=== PATIENT | male | born 1975 | race Caucasian/White ===

== ENCOUNTER 2017-06-03 08:21 | Emergency (ER) | END 2017-06-03 12:12 | disposition home or self-care (01) ==

== ENCOUNTER 2018-11-02 20:41 | Inpatient (IN) | payer MEDICAID ==
[~2018-11-02] VITALS: Ht 355.6 cm; Wt 93.0 kg
[~2018-11-02 20:41] MED LIST: CIPR500T4 PO; HYDR-3980 PO
[2018-11-02] MEDS ORDERED: ACETAMINOPHEN 325 MG TAB PO STA (21:05)
[2018-11-02] MEDS ORDERED: CEFEPIME 2GM/50 ML (PMX) 50 ML IVPB STA (21:05)
[2018-11-02] MEDS ORDERED: SODIUM CHLORIDE 0.9% 1L BAG IV* STA (21:05)
[2018-11-02] MEDS ORDERED: VANCOMYCIN 1 GM (PMX) 250 ML IVPB ONE (21:30)
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
[2018-11-02] MEDS ORDERED: LORAZEPAM 2 MG INJ IV ONE (23:00)
[2018-11-02] MEDS ORDERED: LIDOCAINE 2% JEL.PF.APP 5 ML UROJET SYRINGE MM ONE (23:00)
[2018-11-02] MEDS ORDERED: SOD CHLORIDE 0.9% 1,000 ML IV SCH (23:58)
[2018-11-03] VITALS (70 sets, daily range): BP systolic 79–114; BP diastolic 41–83; PULSE 88–110; RESP 16–39; Ht 355.6 cm; Wt 93.0 kg
[2018-11-03] MEDS ORDERED: DOCUSATE SODIUM 100 MG CAP PO PRN (01:00)
[2018-11-03] MEDS ORDERED: ONDANSETRON 4 MG INJ IV PRN ×2 (01:00)
[2018-11-03] MEDS ORDERED: MAGNESIUM HYDROXIDE 30ML CUP PO PRN (01:00)
[2018-11-03] MEDS ORDERED: LORAZEPAM 2 MG INJ IV PRN (01:00)
[2018-11-03] MEDS ORDERED: ALBUTEROL/IPRATROPIUM (NEB) 3 ML AMP HHN PRN (01:00)
[2018-11-03] MEDS ORDERED: NITROGLYCERIN (SL) 0.4 MG TAB SL PRN (01:00)
[2018-11-03] MEDS ORDERED: hydrALAzine 20 MG INJ IV PRN (01:00)
[2018-11-03] MEDS ORDERED: morphine 2 MG INJ IV PRN (01:00)
[2018-11-03] MEDS ORDERED: ACETAMINOPHEN 325 MG TAB PO PRN ×2 (01:00)
[2018-11-03] MEDS ORDERED: NACL 0.9% 3 ML SYG IV SCH (01:00)
[2018-11-03] MEDS ORDERED: NORepinephrine 8MG/250 ML (PMX 250 ML ONE (03:59)
[2018-11-03] MEDS ORDERED: NORepinephrine 8MG/250 ML (PMX 250 ML IV SCH (04:30)
--- NOTE | 2018-11-03 04:37 | EN ---
Date/Time of Note Date/Time of Note DATE: 11/03/18 TIME: 04:36 ER Progress Note Central Line Placement by me: Patient consented, sterilely draped, full prep, gown, glove, mask, time out performed. Anesthesia: 1% lidocaine locally Location: Right IJ Device: Multiple lumen Technique: Seldinger technique. Secured with suture. Results: Venous return from all ports with easy saline flush. No complications. Guide wire retrieved and disposed of. [ED Ultrasound: Central line placed by me using concurrent ultrasound guidance. [Chest X-ray 1V Interpreted by me: Central line in SVC, Normal soft tissue, No evidence of pneumothorax.] JESSIKA CAMACHO MD Nov 03, 2018 04:37
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
[2018-11-03] MEDS: PANTOPRAZOLE (EC) 40 MG TAB PO SCH (06:37)
[2018-11-03] MEDS: PIPER-TAZO 3.375 GM IV (PMX) 100 ML IVPB SCH ×4 (06:37→23:42)
[2018-11-03] MEDS: HEPARIN 5,000 UNIT/1 ML VIAL SC SCH (08:31)
[2018-11-03] MEDS: SOD CHLORIDE 0.9% 1,000 ML IV SCH ×3 (08:32→19:24)
[2018-11-03] MEDS: NORepinephrine 32 MG in DEXTROSE 5% 218 ML IV SCH (09:21)
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
[2018-11-03] MEDS ORDERED: LIDOCAINE 1% (MDV) 20 ML INJ ONE (12:22)
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
[2018-11-03] MEDS: HYDROCODONE/APAP (5/325) TAB PO PRN ×2 (13:13→23:52)
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
[2018-11-03] MEDS ORDERED: SOD CHLORIDE 0.9% 1,000 ML IV ONE (14:30)
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
[2018-11-04] VITALS (92 sets, daily range): BP systolic 94–119; BP diastolic 57–77; PULSE 82–103; RESP 16–26
[2018-11-04] MEDS: PIPER-TAZO 3.375 GM IV (PMX) 100 ML IVPB SCH ×4 (05:51→23:54)
[2018-11-04] MEDS: SOD CHLORIDE 0.9% 1,000 ML IV SCH ×2 (05:51→17:06)
[2018-11-04] MEDS: PANTOPRAZOLE (EC) 40 MG TAB PO SCH (05:51)
[2018-11-04] MEDS: NORepinephrine 32 MG in DEXTROSE 5% 218 ML IV SCH (05:57)
[2018-11-04] MEDS ORDERED: POTASSIUM CHLORIDE (SR) 20 MEQ TAB PO ONE (06:42)
[2018-11-04] MEDS ORDERED: BACLOFEN 10 MG TAB PO ONE (09:00)
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
[2018-11-04] MEDS ORDERED: MAGNESIUM SULFATE 3 GM in DEXTROSE 5% 100 ML IVPB ONE (14:00)
[2018-11-04] MEDS: HYDROCODONE/APAP (5/325) TAB PO PRN (15:57)
[2018-11-05] VITALS (92 sets, daily range): BP systolic 90–119; BP diastolic 59–96; PULSE 66–95; RESP 15–30
[2018-11-05] MEDS: HYDROCODONE/APAP (5/325) TAB PO PRN (01:05)
[2018-11-05] MEDS: SOD CHLORIDE 0.9% 1,000 ML IV SCH ×3 (01:10→15:49)
[2018-11-05] MEDS ORDERED: CEPASTAT LOZENGE MT PRN (05:00)
[2018-11-05] MEDS: PANTOPRAZOLE (EC) 40 MG TAB PO SCH (06:02)
[2018-11-05] MEDS: PIPER-TAZO 3.375 GM IV (PMX) 100 ML IVPB SCH (06:02)
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
--- NOTE | 2018-11-05 11:39 | CONS ---
Assessment/Plan Assessment/Plan Hospital Course (Demo Recall) Patient is awake in no distress still on Levophed drip no fevers overnight WBC today 14.8 platelets 39 BUN 15 creatinine 0.88 Microbiology: Blood and urine culture grew E. coli susceptible to Rocephin Antimicrobials: Rocephin status post Zosyn Indwelling: Left IJ triple-lumen catheter, suprapubic catheter Chest x-ray this morning revealed stable portable chest without evidence of acute cardiopulmonary disease Physical examination: Well-developed well-nourished middle-aged man who is in no distress. Head atraumatic normocephalic sclera nonicteric neck is supple chest rise symmetrical breath sounds diminished bases. Heart S1-S2 abdomen soft bowel sounds present extremities without cyanosis Assessment: 1. Septic shock, present on admission 2. E. coli UTI with bacteremia 3. Neurogenic bladder, status post suprapubic catheter placement 4. Progressive thrombocytopenia likely secondary to sepsis and antibiotics Plan: Patient is clinically stable, continue present care, antibiotics, repeat blood cultures Consultation Date/Type/Reason Admit Date/Time Nov 03, 2018 at 04:11 Initial Consult Date 11/03/18 Type of Consult id Requesting Provider: DARWIN CABALLERO Date/Time of Note DATE: 11/05/18 TIME: 11:39 Exam/Review of Systems Exam Vitals Vital Signs Date Temp Pulse Resp B/P (MAP) Pulse Ox O2 O2 Flow FiO2 Time Delivery Rate 11/05/18 82 22 105/61 98 10:45 (76) 11/05/18 Room Air 10:00 11/05/18 99.1 08:00 11/05/18 2.0 03:51 Intake and Output 11/04/18 11/04/18 11/05/18 1515:00 23:00 07:00 IntakeIntake Total 1200 ml 1553.21 ml 1106.1 ml OutputOutput Total 1300 ml 1380 ml 1170 ml BalanceBalance -100 ml 173.21 ml -63.9 ml Results Result Diagram: 11/05/180 11/05/18 0410 Results 24hrs Laboratory Tests Test 11/05/18 04:10 White Blood Count 14.8 #H Red Blood Count 3.67 L Hemoglobin 10.9 L Hematocrit 33.1 L Mean Corpuscular Volume 90.2 Mean Corpuscular Hemoglobin 29.7 Mean Corpuscular Hemoglobin Concent 32.9 Red Cell Distribution Width 13.0 Platelet Count 39 #L Mean Platelet Volume 13.1 H Immature Granulocytes % 0.500 H Neutrophils % Lymphocytes % Monocytes % Eosinophils % Basophils % Nucleated Red Blood Cells % 0.0 Immature Granulocytes # 0.080 H Neutrophils # Lymphocytes # Monocytes # Eosinophils # Basophils # Nucleated Red Blood Cells # Sodium Level 139 Potassium Level 3.2 L Chloride Level 108 Carbon Dioxide Level 26 Anion Gap 5 Blood Urea Nitrogen 15 # Creatinine 0.88 Est Glomerular Filtrat Rate mL/min > 60 Glucose Level 99 Calcium Level 7.1 L Magnesium Level 2.4 Medications Medication Current Medications IV Flush (NS 3 ml) 3 ml PER PROTOCOL IV ; Start 11/03/18 at 01:00 Ondansetron HCl (Zofran Inj) 4 mg Q6H PRN IV NAUSEA/VOMITING; Start 11/03/18 at 01:00 Acetaminophen (Tylenol Tab) 650 mg Q6H PRN PO .PAIN 1-3 OR TEMP; Start 11/03/18 at 01:00 Acetaminophen/ Hydrocodone Bitart ([place] (5/325)) 1 tab Q6H PRN PO .MOD PAIN 4- 6 Last administered on 11/05/18at 01:05; Admin Dose 1 TAB; Start 11/03/18 at 01:00 Morphine Sulfate (morphine) 2 mg Q4H PRN IV .SEVERE PAIN 7-10 Last administered on 11/05/18at 09:02; Admin Dose 2 MG; Start 11/03/18 at 01:00 Docusate Sodium (Colace) 100 mg Q12H PRN PO .CONSTIPATION; Start 11/03/18 at 01:00 Magnesium Hydroxide (Milk Of Mag) 30 ml DAILY PRN PO .CONSTIPATION; Start 11/03/18 at 01:00 Pantoprazole (Protonix Tab) 40 mg DAILY@06 PO Last administered on 11/05/18at 06:02; Admin Dose 40 MG; Start 11/03/18 at 06:00 Heparin Sodium (Porcine) (Heparin (5000 Units/1ml)) 5,000 unit Q12 SC Last administered on 11/03/18at 08:31; Admin Dose 5,000 UNIT; Start 11/03/18 at 09:00; Status Hold Lorazepam (Ativan) 0.5 mg Q6H PRN IV ANXIETY; Start 11/03/18 at 01:00 Sodium Chloride 1,000 ml @ 100 mls/hr Q10H IV Last administered on 11/05/18at 01:10; Admin Dose 100 MLS/HR; Start 11/03/18 at 00:33 Albuterol/ Ipratropium (Duoneb) 3 ml Q4H RESP THERAPY PRN HHN SHORTNESS OF BREATH; Start 11/03/18 at 01:00 Hydralazine HCl (Apresoline) 10 mg Q6H PRN IV ELEVATED BLOOD PRESSURE; Start 11/03/18 at 01:00 Nitroglycerin (Nitroglycerin (Sl Tab) 0.4 Mg) 1 tab Q5M PRN SL ANGINA; Start 11/03/18 at 01:00 Norepinephrine 32 mg/Dextrose 250 ml @ 0.47 mls/hr TITRATE IV Last administered on 11/04/18at 05:57; Admin Dose 10.78 MLS/HR; Start 11/03/18 at 06:30 Phenol (Cepastat Lozenge) 1 lozenge Q1H PRN MT SORE THROAT Last administered on 11/05/18at 04:39; Admin Dose 1 LOZENGE; Start 11/05/18 at 05:00 Ceftriaxone Sodium 50 ml @ 100 mls/hr Q24H IVPB ; Start 11/05/18 at 09:30 GISELLA GARCIA NP Nov 05, 2018 11:39
[2018-11-05] MEDS: CEFTRIAXONE 1 GM/50 ML (PMX) 50 ML IVPB SCH (11:51)
[2018-11-05] MEDS ORDERED: POTASSIUM CHLORIDE (SR) 20 MEQ TAB PO ONE (17:00)
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
[2018-11-06] VITALS (42 sets, daily range): BP systolic 65–153; BP diastolic 49–107; PULSE 56–83; RESP 18–37
[2018-11-06] MEDS: PANTOPRAZOLE (EC) 40 MG TAB PO SCH (06:14)
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
[2018-11-06] MEDS ORDERED: CEPASTAT LOZENGE MT PRN (09:30)
[2018-11-06] MEDS: CEFTRIAXONE 1 GM/50 ML (PMX) 50 ML IVPB SCH (10:27)
--- NOTE | 2018-11-06 13:04 | CONS ---
Assessment/Plan Assessment/Plan Hospital Course (Demo Recall) No events overnight patient is off pressors looks comfortable no fevers. WBC 9.5 platelets 48 BUN 11 creatinine 0.81 Microbiology: Blood and urine culture on admission grew E. coli repeat cultures negative Antimicrobials: Rocephin Indwelling: Left IJ triple-lumen catheter, suprapubic catheter Chest x-ray this morning revealed stable portable chest without evidence of acute cardiopulmonary disease Physical examination: Well-developed well-nourished middle-aged man who is in no distress. Head atraumatic normocephalic sclera nonicteric neck is supple chest rise symmetrical breath sounds diminished bases. Heart S1-S2 abdomen soft bowel sounds present extremities without cyanosis Assessment: 1. S/p septic shock 2. E. coli UTI with bacteremia 3. Neurogenic bladder, status post suprapubic catheter placement 4. Progressive thrombocytopenia likely secondary to sepsis and antibiotics Plan: Stable off pressors, continue antibiotics to complete 2 weeks Consultation Date/Type/Reason Admit Date/Time Nov 03, 2018 at 04:11 Initial Consult Date 11/03/18 Type of Consult id Requesting Provider: DARWIN CABALLERO Date/Time of Note DATE: 11/06/18 TIME: 13:03 Exam/Review of Systems Exam Vitals Vital Signs Date Temp Pulse Resp B/P (MAP) Pulse Ox O2 O2 Flow FiO2 Time Delivery Rate 11/06/18 65 12:00 11/06/18 99.2 23 106/90 95 Room Air 08:00 (95) 11/05/18 2.0 03:51 Intake and Output 11/05/18 11/05/18 11/06/18 1515:00 23:00 07:00 IntakeIntake Total 1108.4 ml 1658.60 ml 54.22 ml OutputOutput Total 850 ml 1566 ml 1532 ml BalanceBalance 258.4 ml 92.60 ml -1477.78 ml Results Result Diagram: 11/06/18 0354 11/06/18 0354 Results 24hrs Laboratory Tests Test 11/06/18 03:54 White Blood Count 9.5 # Red Blood Count 3.69 L Hemoglobin 10.9 L Hematocrit 33.0 L Mean Corpuscular Volume 89.4 Mean Corpuscular Hemoglobin 29.5 Mean Corpuscular Hemoglobin Concent 33.0 Red Cell Distribution Width 13.0 Platelet Count 48 #L Mean Platelet Volume 12.3 H Immature Granulocytes % 1.400 H Neutrophils % Segmented Neutrophils % (Manual) 66 Band Neutrophils % (Manual) 16 H Lymphocytes % Lymphocytes % (Manual) 17 Monocytes % Monocytes % (Manual) 1 Eosinophils % Basophils % Nucleated Red Blood Cells % 0.4 H Immature Granulocytes # 0.130 H Neutrophils # Neutrophils # (Manual) 6.4 Band Neutrophils # 1.5 H Lymphocytes (Manual) 1.6 Lymphocytes # Monocytes # Monocytes # (Manual) 0.0 L Eosinophils # Basophils # Nucleated Red Blood Cells # Platelet Estimate SIG DECREASED Polychromasia 2+ Sodium Level 141 Potassium Level 3.8 Chloride Level 110 Carbon Dioxide Level 26 Anion Gap 5 Blood Urea Nitrogen 11 Creatinine 0.81 Est Glomerular Filtrat Rate mL/min > 60 Glucose Level 95 Calcium Level 8.0 L Medications Medication Current Medications IV Flush (NS 3 ml) 3 ml PER PROTOCOL IV ; Start 11/03/18 at 01:00 Ondansetron HCl (Zofran Inj) 4 mg Q6H PRN IV NAUSEA/VOMITING; Start 11/03/18 at 01:00 Acetaminophen (Tylenol Tab) 650 mg Q6H PRN PO .PAIN 1-3 OR TEMP; Start 11/03/18 at 01:00 Acetaminophen/ Hydrocodone Bitart ([place] (5/325)) 1 tab Q6H PRN PO .MOD PAIN 4- 6 Last administered on 11/05/18at 01:05; Admin Dose 1 TAB; Start 11/03/18 at 01:00 Docusate Sodium (Colace) 100 mg Q12H PRN PO .CONSTIPATION Last administered on 11/05/18at 21:53; Admin Dose 100 MG; Start 11/03/18 at 01:00 Magnesium Hydroxide (Milk Of Mag) 30 ml DAILY PRN PO .CONSTIPATION; Start 11/03/18 at 01:00 Pantoprazole (Protonix Tab) 40 mg DAILY@06 PO Last administered on 11/06/18at 06:14; Admin Dose 40 MG; Start 11/03/18 at 06:00 Heparin Sodium (Porcine) (Heparin (5000 Units/1ml)) 5,000 unit Q12 SC Last administered on 11/03/18at 08:31; Admin Dose 5,000 UNIT; Start 11/03/18 at 09:00; Status Hold Albuterol/ Ipratropium (Duoneb) 3 ml Q4H RESP THERAPY PRN HHN SHORTNESS OF BREATH; Start 11/03/18 at 01:00 Hydralazine HCl (Apresoline) 10 mg Q6H PRN IV ELEVATED BLOOD PRESSURE; Start 11/03/18 at 01:00 Nitroglycerin (Nitroglycerin (Sl Tab) 0.4 Mg) 1 tab Q5M PRN SL ANGINA; Start 11/03/18 at 01:00 Ceftriaxone Sodium 50 ml @ 100 mls/hr Q24H IVPB Last administered on 11/06/18at 10:27; Admin Dose 100 MLS/HR; Start 11/05/18 at 09:30 Phenol (Cepastat Lozenge) 1 lozenge Q1H PRN MT SORE THROAT; Start 11/06/18 at 09:30 GISELLA GARCIA NP Nov 06, 2018 13:04
[2018-11-06] MEDS: HYDROCODONE/APAP (5/325) TAB PO PRN (13:11)
[2018-11-07 01:58] VITALS: BP 121/69; PULSE 76; RESP 18
[2018-11-07] MEDS: PANTOPRAZOLE (EC) 40 MG TAB PO SCH (06:06)
[2018-11-07 08:06] VITALS: BP 129/78; PULSE 73; RESP 16
[2018-11-07] MEDS: CEFTRIAXONE 1 GM/50 ML (PMX) 50 ML IVPB SCH (10:25)
--- NOTE | 2018-11-07 13:07 | CONS ---
Assessment/Plan Assessment/Plan Hospital Course (Demo Recall) Patient was transferred to [facility] floor, sleeping arousable denies pain no fevers overnight Microbiology: Blood and urine culture on admission grew E. coli repeat cultures negative Antimicrobials: Rocephin Indwelling: Left IJ triple-lumen catheter, suprapubic catheter Chest x-ray this morning revealed stable portable chest without evidence of acute cardiopulmonary disease Physical examination: Well-developed well-nourished middle-aged man who is in no distress. Head atraumatic normocephalic sclera nonicteric neck is supple chest rise symmetrical breath sounds diminished bases. Heart S1-S2 abdomen soft bowel sounds present extremities without cyanosis Assessment: 1. S/p septic shock 2. E. coli UTI with bacteremia 3. Neurogenic bladder, status post suprapubic catheter placement 4. Progressive thrombocytopenia likely secondary to sepsis and antibiotics Plan: Remains stable, continue antibiotics to complete 2 weeks Consultation Date/Type/Reason Admit Date/Time Nov 03, 2018 at 04:11 Initial Consult Date 11/03/18 Type of Consult id Requesting Provider: DARWIN CABALLERO Date/Time of Note DATE: 11/07/18 TIME: 13:06 Exam/Review of Systems Exam Vitals Vital Signs Date Temp Pulse Resp B/P (MAP) Pulse Ox O2 O2 Flow FiO2 Time Delivery Rate 11/07/18 98.4 73 16 129/78 97 08:06 (95) 11/06/18 Room Air 18:48 11/06/18 21 17:31 11/05/18 2.0 03:51 Intake and Output 11/06/18 11/06/18 11/07/18 1414:59 22:59 06:59 IntakeIntake Total 1010 ml 420 ml OutputOutput Total 1300 ml 575 ml 2900 ml BalanceBalance -290 ml -155 ml -2900 ml Results Result Diagram: 11/07/18 0604 11/07/18 0604 Results 24hrs Laboratory Tests Test 11/07/18 06:04 White Blood Count 9.7 Red Blood Count 4.21 L Hemoglobin 12.0 L Hematocrit 37.1 L Mean Corpuscular Volume 88.1 Mean Corpuscular Hemoglobin 28.5 L Mean Corpuscular Hemoglobin Concent 32.3 Red Cell Distribution Width 13.2 Platelet Count 70 #L Mean Platelet Volume 12.4 H Immature Granulocytes % 6.000 H Neutrophils % Segmented Neutrophils % (Manual) 47 Band Neutrophils % (Manual) 14 H Lymphocytes % Lymphocytes % (Manual) 26 Reactive Lymphocytes % (Manual) 1 H Monocytes % Monocytes % (Manual) 6 Eosinophils % Eosinophils % (Manual) 4 Basophils % Metamyelocytes % (manual) 1 H Myelocytes % (Manual) 1 H Nucleated Red Blood Cells % 0.2 H Immature Granulocytes # 0.580 H Neutrophils # Neutrophils # (Manual) 4.7 Band Neutrophils # 1.3 H Lymphocytes (Manual) 2.5 Lymphocytes # Reactive Lymphocytes # 0.0 Monocytes # Monocytes # (Manual) 0.5 Eosinophils # Basophils # Metamyelocytes # 0.0 Myelocytes # 0.0 Nucleated Red Blood Cells # Platelet Estimate DECREASED Giant Platelets 1 H Polychromasia 3+ Anisocytosis 1+ Microcytosis 1+ Macrocytosis 1+ Ovalocytes 1+ Sodium Level 140 Potassium Level 3.5 Chloride Level 109 Carbon Dioxide Level 25 Anion Gap 6 Blood Urea Nitrogen 12 Creatinine 0.87 Est Glomerular Filtrat Rate mL/min > 60 Glucose Level 123 Calcium Level 8.7 Medications Medication Current Medications IV Flush (NS 3 ml) 3 ml PER PROTOCOL IV Last administered on 11/07/18at 10:25; Admin Dose 3 ML; Start 11/03/18 at 01:00 Ondansetron HCl (Zofran Inj) 4 mg Q6H PRN IV NAUSEA/VOMITING; Start 11/03/18 at 01:00 Acetaminophen (Tylenol Tab) 650 mg Q6H PRN PO .PAIN 1-3 OR TEMP; Start 11/03/18 at 01:00 Acetaminophen/ Hydrocodone Bitart ([place] (5/325)) 1 tab Q6H PRN PO .MOD PAIN 4- 6 Last administered on 11/06/18at 13:11; Admin Dose 1 TAB; Start 11/03/18 at 01:00 Docusate Sodium (Colace) 100 mg Q12H PRN PO .CONSTIPATION Last administered on 11/05/18at 21:53; Admin Dose 100 MG; Start 11/03/18 at 01:00 Magnesium Hydroxide (Milk Of Mag) 30 ml DAILY PRN PO .CONSTIPATION; Start 11/03/18 at 01:00 Pantoprazole (Protonix Tab) 40 mg DAILY@06 PO Last administered on 11/07/18at 06:06; Admin Dose 40 MG; Start 11/03/18 at 06:00 Heparin Sodium (Porcine) (Heparin (5000 Units/1ml)) 5,000 unit Q12 SC Last administered on 11/03/18at 08:31; Admin Dose 5,000 UNIT; Start 11/03/18 at 09:00; Status Hold Albuterol/ Ipratropium (Duoneb) 3 ml Q4H RESP THERAPY PRN HHN SHORTNESS OF BREATH; Start 11/03/18 at 01:00 Hydralazine HCl (Apresoline) 10 mg Q6H PRN IV ELEVATED BLOOD PRESSURE; Start 11/03/18 at 01:00 Nitroglycerin (Nitroglycerin (Sl Tab) 0.4 Mg) 1 tab Q5M PRN SL ANGINA; Start 11/03/18 at 01:00 Ceftriaxone Sodium 50 ml @ 100 mls/hr Q24H IVPB Last administered on 11/07/18at 10:25; Admin Dose 100 MLS/HR; Start 11/05/18 at 09:30 Phenol (Cepastat Lozenge) 1 lozenge Q1H PRN MT SORE THROAT; Start 11/06/18 at 09:30 GISELLA GARCIA NP Nov 07, 2018 13:07
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
[2018-11-07 15:36] VITALS: BP 129/78; PULSE 95; RESP 16
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
[2018-11-07 20:26] VITALS: BP 120/75; PULSE 66; RESP 17
[2018-11-07] MEDS: HYDROCODONE/APAP (5/325) TAB PO PRN (20:33)
[2018-11-07] MEDS ORDERED: LORAZEPAM 2 MG INJ IV ONE (22:00)
[2018-11-08 01:45] VITALS: BP 109/70; PULSE 67; RESP 16
[2018-11-08] MEDS: PANTOPRAZOLE (EC) 40 MG TAB PO SCH (06:35)
[2018-11-08] MEDS: CEFTRIAXONE 1 GM/50 ML (PMX) 50 ML IVPB SCH (08:21)
[2018-11-08 08:30] VITALS: BP 115/70; PULSE 61; RESP 18
--- NOTE | 2018-11-08 10:48 | CONS ---
Assessment/Plan Assessment/Plan Hospital Course (Demo Recall) All noted, no acute events Microbiology: Blood and urine culture on admission grew E. coli repeat cultures negative Antimicrobials: Rocephin Indwelling: Left IJ triple-lumen catheter, suprapubic catheter Chest x-ray this morning revealed stable portable chest without evidence of acute cardiopulmonary disease Physical examination: Well-developed well-nourished middle-aged man who is in no distress. Head atraumatic normocephalic sclera nonicteric neck is supple chest rise symmetrical breath sounds diminished bases. Heart S1-S2 abdomen soft bowel sounds present extremities without cyanosis Assessment: 1. S/p septic shock 2. E. coli UTI with bacteremia 3. Neurogenic bladder, status post suprapubic catheter placement 4. Progressive thrombocytopenia likely secondary to sepsis and antibiotics Plan: Remains stable, continue antibiotics to complete treatment for urosepsis ==> last dose 11/11 Consultation Date/Type/Reason Admit Date/Time Nov 03, 2018 at 04:11 Initial Consult Date 11/03/18 Type of Consult id Requesting Provider: DARWIN CABALLERO Date/Time of Note DATE: 11/08/18 TIME: 10:47 Exam/Review of Systems Exam Vitals Vital Signs Date Temp Pulse Resp B/P (MAP) Pulse Ox O2 O2 Flow FiO2 Time Delivery Rate 11/08/18 98.3 61 18 115/70 97 08:30 (85) 11/06/18 Room Air 18:48 11/06/18 21 17:31 11/05/18 2.0 03:51 Intake and Output 11/07/18 11/07/18 11/08/18 1515:00 23:00 07:00 IntakeIntake Total 990 ml 660 ml OutputOutput Total 2500 ml 3300 ml BalanceBalance -1510 ml -2640 ml Results Result Diagram: 11/08/18 0537 11/08/18 0537 Results 24hrs Laboratory Tests Test 11/08/18 05:37 White Blood Count 10.9 H Red Blood Count 4.29 L Hemoglobin 12.5 L Hematocrit 37.7 L Mean Corpuscular Volume 87.9 Mean Corpuscular Hemoglobin 29.1 Mean Corpuscular Hemoglobin Concent 33.2 Red Cell Distribution Width 12.9 Platelet Count 121 #L Mean Platelet Volume 11.4 H Immature Granulocytes % 16.700 H Neutrophils % Segmented Neutrophils % (Manual) 40 Band Neutrophils % (Manual) 7 H Lymphocytes % Lymphocytes % (Manual) 37 Reactive Lymphocytes % (Manual) 1 H Monocytes % Monocytes % (Manual) 7 Eosinophils % Eosinophils % (Manual) 3 Basophils % Basophils % (Manual) 1 Metamyelocytes % (manual) 3 H Myelocytes % (Manual) 1 H Nucleated Red Blood Cells % 0.3 H Immature Granulocytes # 1.820 H Neutrophils # Neutrophils # (Manual) 4.4 Band Neutrophils # 0.7 H Lymphocytes (Manual) 4.0 H Lymphocytes # Reactive Lymphocytes # 0.1 H Monocytes # Monocytes # (Manual) 0.7 Eosinophils # Basophils # Basophils # (Manual) 0.1 H Metamyelocytes # 0.3 H Myelocytes # 0.1 H Nucleated Red Blood Cells # Platelet Estimate DECREASED Giant Platelets 6 H Polychromasia 1+ Poikilocytosis 1+ Spherocytes 1+ Sodium Level 140 Potassium Level 3.8 Chloride Level 108 Carbon Dioxide Level 27 Anion Gap 5 Blood Urea Nitrogen 14 Creatinine 0.82 Est Glomerular Filtrat Rate mL/min > 60 Glucose Level 91 Calcium Level 8.3 L Phosphorus Level 3.8 Magnesium Level 1.9 Medications Medication Current Medications IV Flush (NS 3 ml) 3 ml PER PROTOCOL IV Last administered on 11/07/18at 10:25; Admin Dose 3 ML; Start 11/03/18 at 01:00 Ondansetron HCl (Zofran Inj) 4 mg Q6H PRN IV NAUSEA/VOMITING; Start 11/03/18 at 01:00 Acetaminophen (Tylenol Tab) 650 mg Q6H PRN PO .PAIN 1-3 OR TEMP; Start 11/03/18 at 01:00 Acetaminophen/ Hydrocodone Bitart ([place] (5/325)) 1 tab Q6H PRN PO .MOD PAIN 4- 6 Last administered on 11/07/18at 20:33; Admin Dose 1 TAB; Start 11/03/18 at 01:00 Docusate Sodium (Colace) 100 mg Q12H PRN PO .CONSTIPATION Last administered on 11/05/18at 21:53; Admin Dose 100 MG; Start 11/03/18 at 01:00 Magnesium Hydroxide (Milk Of Mag) 30 ml DAILY PRN PO .CONSTIPATION; Start 11/03/18 at 01:00 Pantoprazole (Protonix Tab) 40 mg DAILY@06 PO Last administered on 11/08/18at 06:35; Admin Dose 40 MG; Start 11/03/18 at 06:00 Heparin Sodium (Porcine) (Heparin (5000 Units/1ml)) 5,000 unit Q12 SC Last administered on 11/03/18at 08:31; Admin Dose 5,000 UNIT; Start 11/03/18 at 09:00; Status Hold Albuterol/ Ipratropium (Duoneb) 3 ml Q4H RESP THERAPY PRN HHN SHORTNESS OF BREATH; Start 11/03/18 at 01:00 Hydralazine HCl (Apresoline) 10 mg Q6H PRN IV ELEVATED BLOOD PRESSURE; Start 11/03/18 at 01:00 Nitroglycerin (Nitroglycerin (Sl Tab) 0.4 Mg) 1 tab Q5M PRN SL ANGINA; Start 11/03/18 at 01:00 Ceftriaxone Sodium 50 ml @ 100 mls/hr Q24H IVPB Last administered on 11/08/18at 08:21; Admin Dose 100 MLS/HR; Start 11/05/18 at 09:30 Phenol (Cepastat Lozenge) 1 lozenge Q1H PRN MT SORE THROAT; Start 11/06/18 at 09:30 GISELLA GARCIA NP Nov 08, 2018 10:48
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
[2018-11-08 14:50] VITALS: BP 117/66; PULSE 70; RESP 17
[2018-11-08 19:35] VITALS: BP 110/68; PULSE 75; RESP 16
[2018-11-08] MEDS: SACCHAROMYCES BOULARDII 250 MG CAP PO SCH (20:44)
[2018-11-09 02:10] VITALS: BP 102/60; PULSE 69; RESP 17
[2018-11-09] MEDS ORDERED: LORAZEPAM 2 MG INJ IV ONE (03:00)
[2018-11-09] MEDS: PANTOPRAZOLE (EC) 40 MG TAB PO SCH (05:55)
[2018-11-09 08:02] VITALS: BP 118/75; PULSE 68; RESP 20
[2018-11-09] MEDS: SACCHAROMYCES BOULARDII 250 MG CAP PO SCH ×2 (08:43→21:01)
[2018-11-09] MEDS: CEFTRIAXONE 1 GM/50 ML (PMX) 50 ML IVPB SCH (08:43)
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
[2018-11-09] MEDS: HEPARIN 5,000 UNIT/1 ML VIAL SC SCH ×2 (09:43→21:01)
[2018-11-09] MEDS ORDERED: LORAZEPAM 2 MG INJ IV PRN (11:30)
--- NOTE | 2018-11-09 14:44 | CONS ---
Assessment/Plan Assessment/Plan Hospital Course (Demo Recall) Patient is alert feels good denies pain no nausea vomiting diarrhea no fevers WBC today 14.3 neutrophils 43. BUN 17 creatinine 0.80 Microbiology: Blood and urine culture on admission grew E. coli repeat cultures negative Antimicrobials: Rocephin Indwelling: Suprapubic catheter Chest x-ray this morning revealed stable portable chest without evidence of acute cardiopulmonary disease Physical examination: Well-developed well-nourished middle-aged man who is in no distress. Head atraumatic normocephalic sclera nonicteric neck is supple chest rise symmetrical breath sounds diminished bases. Heart S1-S2 abdomen soft bowel sounds present extremities without cyanosis Assessment: 1. S/p septic shock 2. E. coli UTI with bacteremia 3. Neurogenic bladder, status post suprapubic catheter placement 4. Progressive thrombocytopenia likely secondary to sepsis and antibiotics Plan: Remains stable, increase in leukocytosis noted, patient does not appear to be septic, status post triple-lumen catheter discontinued, antibiotics last dose 11/11 Consultation Date/Type/Reason Admit Date/Time Nov 03, 2018 at 04:11 Initial Consult Date 11/03/18 Type of Consult id Requesting Provider: DARWIN CABALLERO Date/Time of Note DATE: 11/09/18 TIME: 14:43 Exam/Review of Systems Exam Vitals Vital Signs Date Temp Pulse Resp B/P (MAP) Pulse Ox O2 O2 Flow FiO2 Time Delivery Rate 11/09/18 98.4 68 20 118/75 96 08:02 (89) 11/06/18 Room Air 18:48 11/06/18 21 17:31 Intake and Output 11/08/18 11/08/18 11/09/18 1515:00 23:00 07:00 IntakeIntake Total 1700 ml OutputOutput Total 3400 ml 1300 ml BalanceBalance -3400 ml 1700 ml -1300 ml Results Result Diagram: 11/09/18 0549 11/09/18 0549 Results 24hrs Laboratory Tests Test 11/09/18 05:49 White Blood Count 14.3 #H Red Blood Count 4.64 L Hemoglobin 13.5 L Hematocrit 40.9 L Mean Corpuscular Volume 88.1 Mean Corpuscular Hemoglobin 29.1 Mean Corpuscular Hemoglobin Concent 33.0 Red Cell Distribution Width 13.1 Platelet Count 199 # Mean Platelet Volume 10.9 H Immature Granulocytes % 22.100 H Neutrophils % Segmented Neutrophils % (Manual) 43 Band Neutrophils % (Manual) 5 H Lymphocytes % Lymphocytes % (Manual) 18 Reactive Lymphocytes % (Manual) 2 H Monocytes % Monocytes % (Manual) 11 Eosinophils % Eosinophils % (Manual) 11 H Basophils % Metamyelocytes % (manual) 2 H Myelocytes % (Manual) 6 H Promyelocytes % (Manual) 2 H Nucleated Red Blood Cells % 0.0 Immature Granulocytes # 3.160 H Neutrophils # Neutrophils # (Manual) 6.2 Band Neutrophils # 0.7 H Lymphocytes (Manual) 2.5 Lymphocytes # Reactive Lymphocytes # 0.2 H Monocytes # Monocytes # (Manual) 1.5 H Eosinophils # Basophils # Metamyelocytes # 0.2 H Myelocytes # 0.8 H Promyelocytes # 0.2 H Nucleated Red Blood Cells # Platelet Estimate NORMAL Giant Platelets 5 H Polychromasia 1+ Sodium Level 139 Potassium Level 4.4 Chloride Level 106 Carbon Dioxide Level 25 Anion Gap 8 Blood Urea Nitrogen 17 Creatinine 0.80 Est Glomerular Filtrat Rate mL/min > 60 Glucose Level 105 Calcium Level 8.8 Phosphorus Level 3.7 Magnesium Level 2.1 Medications Medication Current Medications IV Flush (NS 3 ml) 3 ml PER PROTOCOL IV Last administered on 11/07/18at 10:25; Admin Dose 3 ML; Start 11/03/18 at 01:00 Ondansetron HCl (Zofran Inj) 4 mg Q6H PRN IV NAUSEA/VOMITING; Start 11/03/18 at 01:00 Acetaminophen (Tylenol Tab) 650 mg Q6H PRN PO .PAIN 1-3 OR TEMP; Start 11/03/18 at 01:00 Acetaminophen/ Hydrocodone Bitart ([place] (5/325)) 1 tab Q6H PRN PO .MOD PAIN 4- 6 Last administered on 11/07/18at 20:33; Admin Dose 1 TAB; Start 11/03/18 at 01:00 Docusate Sodium (Colace) 100 mg Q12H PRN PO .CONSTIPATION Last administered on 11/05/18at 21:53; Admin Dose 100 MG; Start 11/03/18 at 01:00 Magnesium Hydroxide (Milk Of Mag) 30 ml DAILY PRN PO .CONSTIPATION; Start 11/03/18 at 01:00 Pantoprazole (Protonix Tab) 40 mg DAILY@06 PO Last administered on 11/09/18at 05:55; Admin Dose 40 MG; Start 11/03/18 at 06:00 Heparin Sodium (Porcine) (Heparin (5000 Units/1ml)) 5,000 unit Q12 SC Last administered on 11/09/18 09:43; Admin Dose 5,000 UNIT; Start 11/03/18 at 09:00 Albuterol/ Ipratropium (Duoneb) 3 ml Q4H RESP THERAPY PRN HHN SHORTNESS OF B REATH; Start 11/03/18 at 01:00 Hydralazine HCl (Apresoline) 10 mg Q6H PRN IV ELEVATED BLOOD PRESSURE; Start 11/03/18 at 01:00 Nitroglycerin (Nitroglycerin (Sl Tab) 0.4 Mg) 1 tab Q5M PRN SL ANGINA; Start 11/03/18 at 01:00 Ceftriaxone Sodium 50 ml @ 100 mls/hr Q24H IVPB Last administered on 11/09/18at 08:43; Admin Dose 100 MLS/HR; Start 11/05/18 at 09:30 Phenol (Cepastat Lozenge) 1 lozenge Q1H PRN MT SORE THROAT; Start 11/06/18 at 09:30 Saccharomyces Boulardii (Florastor) 250 mg BID PO Last administered on 11/09/18at 08:43; Admin Dose 250 MG; Start 11/08/18 at 21:00 Zolpidem Tartrate (Ambien) 5 mg HS MAY REPEAT X 1 PRN PO INSOMNIA; Start 11/09/18 at 11:30 Lorazepam (Ativan) 1 mg Q8H PRN IV ANxiety; Start 11/09/18 at 11:30 GISELLA GARCIA NP Nov 09, 2018 14:44
[2018-11-09 15:05] VITALS: BP 111/61; PULSE 71; RESP 20
[2018-11-09] MEDS: VITAMIN A & D 5 GM OINT PACKET TOP SCH ×2 (18:12→23:07)
[2018-11-09 20:17] VITALS: BP 112/60; PULSE 73; RESP 18
[2018-11-09] MEDS: ZOLPIDEM 5 MG TAB PO PRN (23:22)
[2018-11-10 02:30] VITALS: BP 100/58; PULSE 78; RESP 18
[2018-11-10] MEDS: PANTOPRAZOLE (EC) 40 MG TAB PO SCH (05:53)
[2018-11-10 08:00] VITALS: BP 122/70; PULSE 72; RESP 16
[2018-11-10] MEDS: SACCHAROMYCES BOULARDII 250 MG CAP PO SCH ×2 (09:00→21:04)
[2018-11-10] MEDS: VITAMIN A & D 5 GM OINT PACKET TOP SCH ×2 (09:00→21:04)
[2018-11-10] MEDS: CEFTRIAXONE 1 GM/50 ML (PMX) 50 ML IVPB SCH (09:00)
[2018-11-10] MEDS: HEPARIN 5,000 UNIT/1 ML VIAL SC SCH ×2 (09:06→21:00)
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
[2018-11-10 14:24] VITALS: BP 114/69; PULSE 76; RESP 16
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
--- NOTE | 2018-11-10 15:34 | CONS ---
Consultation Date/Type/Reason Admit Date/Time Nov 03, 2018 at 04:11 Initial Consult Date 11/03/18 Type of Consult SUBJECTIVE: Patient is awake, alert, no acute distress. NO fevers. VS: stable T: 98.4 LABS: Reviewed. WBC- 13.9 -Improving Microbiology: Blood and urine culture on admission grew E. coli repeat cultures negative Antimicrobials: Rocephin Indwelling: Suprapubic catheter Chest x-ray this morning revealed stable portable chest without evidence of acute cardiopulmonary disease Physical examination: GEN: Well-developed well-nourished middle-aged man, who is in no distress. HENT: Head atraumatic normocephalic sclera nonicteric; neck is supple PULM: chest rise symmetrical breath sounds diminished bases. Heart S1-S2 Abdomen: soft, bowel sounds present Extremities without cyanosis Assessment: 1. S/p septic shock 2. E. coli UTI with bacteremia 3. Neurogenic bladder, status post suprapubic catheter placement 4. Progressive thrombocytopenia likely secondary to sepsis and antibiotics Plan: Pt is stable. Leukocytosis noted, and improving. Patient does not appear to be septic. Status post triple-lumen catheter discontinued. Continue current antibiotics ===>last dose 11/11 Requesting Provider: DARWIN CABALLERO Date/Time of Note DATE: 11/10/18 TIME: 15:31 Exam/Review of Systems Exam Vitals Vital Signs Date Temp Pulse Resp B/P (MAP) Pulse Ox O2 O2 Flow FiO2 Time Delivery Rate 11/10/18 98.4 76 16 114/69 95 14:24 (84) 11/10/18 Room Air 08:00 11/06/18 21 17:31 Intake and Output 11/09/18 11/09/18 11/10/18 1414:59 22:59 06:59 IntakeIntake Total 710 ml 360 ml OutputOutput Total 975 ml 900 ml BalanceBalance -265 ml -540 ml Results Result Diagram: 11/10/18 0437 11/10/18 0437 Results 24hrs Laboratory Tests Test 11/10/18 04:37 White Blood Count 13.9 H Red Blood Count 4.78 Hemoglobin 13.9 L Hematocrit 42.4 Mean Corpuscular Volume 88.7 Mean Corpuscular Hemoglobin 29.1 Mean Corpuscular Hemoglobin Concent 32.8 Red Cell Distribution Width 13.0 Platelet Count 286 # Mean Platelet Volume 10.7 H Immature Granulocytes % 27.200 H Neutrophils % Segmented Neutrophils % (Manual) 43 Band Neutrophils % (Manual) 10 H Lymphocytes % Lymphocytes % (Manual) 9 L Reactive Lymphocytes % (Manual) 2 H Monocytes % Monocytes % (Manual) 6 Eosinophils % Eosinophils % (Manual) 6 Basophils % Metamyelocytes % (manual) 5 H Myelocytes % (Manual) 15 H Promyelocytes % (Manual) 4 H Nucleated Red Blood Cells % 0.0 Immature Granulocytes # 3.780 H Neutrophils # Neutrophils # (Manual) 6.2 Band Neutrophils # 1.3 H Lymphocytes (Manual) 1.2 Lymphocytes # Reactive Lymphocytes # 0.2 H Monocytes # Monocytes # (Manual) 0.8 Eosinophils # Basophils # Metamyelocytes # 0.6 H Myelocytes # 2.0 H Promyelocytes # 0.5 H Nucleated Red Blood Cells # Platelet Estimate NORMAL Giant Platelets 2 H Polychromasia 1+ Sodium Level 138 Potassium Level 4.5 Chloride Level 106 Carbon Dioxide Level 24 Anion Gap 8 Blood Urea Nitrogen 19 Creatinine 0.92 Est Glomerular Filtrat Rate mL/min > 60 Glucose Level 105 Calcium Level 8.9 Phosphorus Level 3.4 Magnesium Level 2.2 Medications Medication Current Medications IV Flush (NS 3 ml) 3 ml PER PROTOCOL IV Last administered on 11/07/18at 10:25; Admin Dose 3 ML; Start 11/03/18 at 01:00 Ondansetron HCl (Zofran Inj) 4 mg Q6H PRN IV NAUSEA/VOMITING; Start 11/03/18 at 01:00 Acetaminophen (Tylenol Tab) 650 mg Q6H PRN PO .PAIN 1-3 OR TEMP; Start 11/03/18 at 01:00 Acetaminophen/ Hydrocodone Bitart ([place] (5/325)) 1 tab Q6H PRN PO .MOD PAIN 4- 6 Last administered on 11/07/18at 20:33; Admin Dose 1 TAB; Start 11/03/18 at 01:00 Docusate Sodium (Colace) 100 mg Q12H PRN PO .CONSTIPATION Last administered on 11/05/18at 21:53; Admin Dose 100 MG; Start 11/03/18 at 01:00 Magnesium Hydroxide (Milk Of Mag) 30 ml DAILY PRN PO .CONSTIPATION; Start 11/03/18 at 01:00 Pantoprazole (Protonix Tab) 40 mg DAILY@06 PO Last administered on 11/10/18 05:53; Admin Dose 40 MG; Start 11/03/18 at 06:00 Heparin Sodium (Porcine) (Heparin (5000 Units/1ml)) 5,000 unit Q12 SC Last administered on 11/10/18 09:06; Admin Dose 5,000 UNIT; Start 11/03/18 at 09:00 Albuterol/ Ipratropium (Duoneb) 3 ml Q4H RESP THERAPY PRN HHN SHORTNESS OF BREATH; Start 11/03/18 at 01:00 Hydralazine HCl (Apresoline) 10 mg Q6H PRN IV ELEVATED BLOOD PRESSURE; Start 11/03/18 at 01:00 Nitroglycerin (Nitroglycerin (Sl Tab) 0.4 Mg) 1 tab Q5M PRN SL ANGINA; Start 11/03/18 at 01:00 Ceftriaxone Sodium 50 ml @ 100 mls/hr Q24H IVPB Last administered on 11/10/18 09:00; Admin Dose 100 MLS/HR; Start 11/05/18 at 09:30 Phenol (Cepastat Lozenge) 1 lozenge Q1H PRN MT SORE THROAT; Start 11/06/18 at 09:30 Saccharomyces Boulardii (Florastor) 250 mg BID PO Last administered on 11/10/18 09:00; Admin Dose 250 MG; Start 11/08/18 at 21:00 Zolpidem Tartrate (Ambien) 5 mg HS MAY REPEAT X 1 PRN PO INSOMNIA Last administered on 11/09/18 23:22; Admin Dose 5 MG; Start 11/09/18 at 11:30 Lorazepam (Ativan) 1 mg Q8H PRN IV ANxiety; Start 11/09/18 at 11:30 Vitamin A/Vitamin D (Vitamin A & D Oint) 1 applic BID TOP Last administered on 11/10/18 09:00; Admin Dose 1 APPLIC; Start 11/09/18 at 15:30 GIORGIO CURRY Nov 10, 2018 15:34
[2018-11-10 20:00] VITALS: BP 110/61; PULSE 64; RESP 18
[2018-11-10] MEDS: ZOLPIDEM 5 MG TAB PO PRN (23:50)
[2018-11-11 02:00] VITALS: BP 105/60; PULSE 63; RESP 18
[2018-11-11] MEDS: PANTOPRAZOLE (EC) 40 MG TAB PO SCH (06:04)
[2018-11-11 07:56] VITALS: BP 107/62; PULSE 70; RESP 16
[2018-11-11] MEDS: HEPARIN 5,000 UNIT/1 ML VIAL SC SCH (09:00)
[2018-11-11] MEDS: VITAMIN A & D 5 GM OINT PACKET TOP SCH (09:12)
[2018-11-11] MEDS: CEFTRIAXONE 1 GM/50 ML (PMX) 50 ML IVPB SCH (09:12)
[2018-11-11] MEDS: SACCHAROMYCES BOULARDII 250 MG CAP PO SCH (09:12)
--- NOTE | 2018-11-11 09:18 | PDOCDIS ---
Discharge Instructions CONDITION [id number] Patient Condition: [id number] Stable HOME CARE INSTRUCTIONS: [id number] Diet Instructions: [id number] Regular FOLLOW UP/APPOINTMENTS Follow-up Plan Follow-up with [facility] at the earliest. OTHER ORDERS: Other Orders: 1. Take a regular diet as tolerated. 2. Empty the urine bag as instructed. 3. Resume activities as tolerated. 4. Please follow-up with outpatient urology/urology at [facility] at the earliest. 5. Please go to the nearest emergency room if you have persistent fevers, significant abdominal pain or the pain in the urethra, or any other unusual signs/symptoms. MEHUL WALKER NP Nov 11, 2018 09:18
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
[2018-11-11 14:39] VITALS: BP 114/64; PULSE 75; RESP 16
== END 2018-11-11 15:00 | disposition home or self-care (01) | DRG 871 ==
LOC: E/R 20:41 → EDBEDREQSVC 11-03 04:09 → EDBEDREQ 11-03 04:09 → ICU 11-03 04:11 → 2NE 11-06 18:35
PROVIDERS: ADMIT Hospitalist; ATTEND Internal Medicine
PROC: 0T9B30Z Drainage of Bladder with Drainage Device, Percutaneous Approach (ICD-10-PCS; principal; 2018-11-03)
DX: A41.9 Sepsis, unspecified organism (principal); R65.21 Severe sepsis with septic shock; N39.0 Urinary tract infection, site not specified; B96.89 Other specified bacterial agents as the cause of diseases classified elsewhere; N35.919 Unspecified urethral stricture, male, unspecified site; N40.0 Benign prostatic hyperplasia without lower urinary tract symptoms; D69.6 Thrombocytopenia, unspecified; D64.9 Anemia, unspecified
CPT/HCPCS: 36415; 71045; 74018; 76856; 76942; 80048; 80053; 80061; 81001; 83036; 83605; 83735; 84100; 84439; 84443; 84484; 85025; 85610; 85730; 87081; 87086; 87400; 92610; 93005; 96374; 96375; J0692; J0696; J1644; J2060; J2270; J2543; J3370; J3475; J7030; J7070

== ENCOUNTER 2018-12-11 21:18 | Emergency (ER) | payer MEDICAID ==
[~2018-12-11] VITALS: Ht 172.7 cm; Wt 90.7 kg
[2018-12-11 21:31] VITALS: Ht 172.7 cm; Wt 90.7 kg
--- NOTE | 2018-12-11 22:02 | ERD ---
ER Documentation Chief Complaint Chief Complaint Discomfort urinating HPI The patient is a 43-year-old male, presenting to the ER because he has discomfort urinating for 1 day after he stop Bactrim DS. He took a week worth of Bactrim DS for acute cystitis, felt better while he was taking the antibiotic. He denies fever, chills, neck pain, chest pain, dyspnea, abdominal pain, vomiting, diarrhea, constipation. He does not smoke nor drink Past medical history: Medical history: History of urethral stricture, waiting to see urologist Past surgical history: Suprapubic Sewell catheter ROS All systems reviewed and are negative except as per history of present illness. Medications Home Meds Active Scripts Sulfamethoxazole/Trimethoprim* (Bactrim Ds* Tablet) 1 Each Tablet, 1 TAB PO BID, #14 TAB Prov:TAYLA BHATIA MD 12/11/18 Allergies Allergies: Coded Allergies: No Known Allergy (Unverified , 12/11/18) PMhx/Soc History of Surgery: Yes (suprapubic cath placement ) Anesthesia Reaction: No Hx Neurological Disorder: No Hx Respiratory Disorders: No Hx Cardiac Disorders: No Hx Psychiatric Problems: No Hx Miscellaneous Medical Probl: Yes (MILD OBESITY) Hx Alcohol Use: Yes Hx Substance Use: No Hx Tobacco Use: Yes Smoking Status: Current every day smoker Physical Exam Vitals Vital Signs Date Temp Pulse Resp B/P (MAP) Pulse Ox O2 O2 Flow FiO2 Time Delivery Rate 12/11/18 98.1 60 14 110/76 98 Room Air 23:31 (87) 12/11/18 70 14 117/80 98 Room Air 23:00 (92) 12/11/18 98.0 63 19 118/70 98 21:31 (86) Physical Exam Const: No acute distress. Head: Atraumatic. Eyes: Normal Conjunctiva. ENT: Normal External Ears, Nose and Mouth. Neck: Full range of motion. No meningismus. Resp: Clear to auscultation bilaterally. Cardio: Regular rate and rhythm. Abd: Soft, non distended, normal bowel sounds, non tender. Suprapubic Sewell catheter Skin: No petechiae or rashes. Back: No midline or flank tenderness. Ext: No cyanosis, or edema. Neur: Awake and alert. No focal deficit Psych: Normal Mood and Affect. Result Diagram: 12/11/18222912/11/182229 Results 24 hrs Laboratory Tests Test 12/11/18 22:21 12/11/18 22:30 12/11/18 22:32 Urine Color YELLOW Urine Clarity CLOUDY Urine pH 6.0 Urine Specific Jackson 1.009 Urine Ketones NEGATIVE mg/dL Urine Nitrite NEGATIVE mg/dL Urine Bilirubin NEGATIVE mg/dL Urine Urobilinogen NEGATIVE mg/dL Urine Leukocyte Esterase TRACE Jill/ul Urine Microscopic RBC 10 /HPF Urine Microscopic WBC 7 /HPF Urine Calcium Oxalate Crystals MANY /HPF Urine Amorphous Crystals FEW /HPF Urine Bacteria FEW /HPF Urine Hemoglobin 3+ mg/dL Urine Glucose NEGATIVE mg/dL Urine Total Protein NEGATIVE mg/dl White Blood Count 7.2 10^3/ul Red Blood Count 4.93 10^6/ul Hemoglobin 14.2 g/dl Hematocrit 44.3 % Mean Corpuscular Volume 89.9 fl Mean Corpuscular Hemoglobin 28.8 pg Mean Corpuscular 32.1 g/dl Hemoglobin Concent Red Cell Distribution Width 12.5 % Platelet Count 205 10^3/UL Mean Platelet Volume 9.7 fl Immature Granulocytes % 1.100 % Neutrophils % 59.3 % Lymphocytes % 27.5 % Monocytes % 7.4 % Eosinophils % 3.9 % Basophils % 0.8 % Nucleated Red Blood Cells % 0.0 /100WBC Immature Granulocytes # 0.080 10^3/ul Neutrophils # 4.2 10^3/ul Lymphocytes # 2.0 10^3/ul Monocytes # 0.5 10^3/ul Eosinophils # 0.3 10^3/ul Basophils # 0.1 10^3/ul Nucleated Red Blood Cells # 0.0 10^3/ul Sodium Level 141 mmol/L Potassium Level 4.8 mmol/L Chloride Level 101 mmol/L Carbon Dioxide Level 31 mmol/L Anion Gap 9 Blood Urea Nitrogen 18 mg/dl Creatinine 1.07 mg/dl Est Glomerular Filtrat > 60 mL/min Rate mL/min Glucose Level 112 mg/dl Calcium Level 9.9 mg/dl Bedside Urine pH (LAB) 6.0 Bedside Urine Protein (LAB) 1+ Bedside Urine Glucose (UA) Negative Bedside Urine Ketones (LAB) Negative Bedside Urine Blood 2+ Bedside Urine Nitrite (LAB) Negative Bedside Urine Leukocyte Esterase Trace (L Current Medications Medications Dose Sig/Oscar Start Time Status Last (Trade) Ordered Route PRN Stop Time Admin Dose Reason Admin Sodium 1,000 ml @ Q1H STAT 12/11/18 DC 12/11/18 Chloride 1,000 mls/hr IV 22:14 22:32 12/11/18 23:13 Procedures/MDM MEDICAL MAKING DECISION: The patient is a 43-year-old male, presenting with re cent cystitis, I will treat the patient for another week of Bactrim DS, is above outpatient follow-up The differential diagnoses considered include but are not limited to recurrent UTI, pyelonephritis, urethral stricture, neurogenic bladder Departure Diagnosis: Primary Impression: Recent urinary tract infection Condition: Good Comments He was discharge was Bactrim DS I discussed the findings with the patient. I advised the patient to follow-up with his urologist in about 1-2 days, sooner if needed and return if any concern. Disclaimer: Inadvertent spelling and grammatical errors are likely due to EHR/dictation software use and do not reflect on the overall quality of patient care. Also, please note that the electronic time recorded on this note does not necessarily reflect the actual time of the patient encounter. TAYLA BHATIA MD Dec 11, 2018 22:02
[2018-12-11] MEDS ORDERED: SOD CHLORIDE 0.9% 1,000 ML IV STA (22:14)
[2018-12-11] MEDS ORDERED: SULF1TAB31 PO (23:19)
[2018-12-11 23:31] VITALS: BP 110/76; PULSE 60; RESP 14
== END 2018-12-11 23:31 | disposition home or self-care (01) ==
LOC: E/R 21:18
DX: N39.0 Urinary tract infection, site not specified (principal); F17.210 Nicotine dependence, cigarettes, uncomplicated; E66.9 Obesity, unspecified; Z68.30 Body mass index [BMI] 30.0-30.9, adult
CPT/HCPCS: 36415; 80048; 81001; 85025; 87086; J7030; Z7502; 81003

== ENCOUNTER 2019-01-15 21:07 | Inpatient (IN) | payer MEDICAID, OTHER ==
[~2019-01-15] VITALS: Ht 172.7 cm; Wt 92.7 kg
[~2019-01-15 21:07] MED LIST changes: -HYDR-3980 PO; +SULF1TAB31 PO
[2019-01-15 21:09] VITALS: Ht 172.7 cm; Wt 92.7 kg
[2019-01-15] MEDS ORDERED: SOD CHLORIDE 0.9% 1,000 ML IV STA (23:50)
[2019-01-16] MEDS ORDERED: CEFTRIAXONE 1 GM/50 ML (PMX) 50 ML IVPB ONE (01:30)
[2019-01-16] MEDS ORDERED: ACETAMINOPHEN 325 MG TAB PO PRN (02:00)
[2019-01-16] MEDS ORDERED: ONDANSETRON 4 MG INJ IV PRN (02:00)
[2019-01-16] MEDS ORDERED: morphine 4 MG/ML VIAL IV STA (02:08)
[2019-01-16 07:45] VITALS: BP 98/60; PULSE 53; RESP 16
[2019-01-16] MEDS: CEFTRIAXONE 1 GM/50 ML (PMX) 50 ML IVPB SCH (08:52)
[2019-01-16 14:58] VITALS: BP 115/65; PULSE 68; RESP 17
[2019-01-16] MEDS: HYDROCODONE/APAP (5/325) TAB PO PRN (16:55)
[2019-01-16 20:05] VITALS: BP 115/63; PULSE 56; RESP 18
[2019-01-17 02:00] VITALS: BP 110/56; PULSE 51; RESP 18
[2019-01-17] MEDS: ACETAMINOPHEN 325 MG TAB PO PRN ×2 (06:41→19:15)
[2019-01-17 07:27] VITALS: BP 105/60; PULSE 50; RESP 18
[2019-01-17] MEDS: CEFTRIAXONE 1 GM/50 ML (PMX) 50 ML IVPB SCH (08:52)
[2019-01-17 14:21] VITALS: BP 108/60; PULSE 61; RESP 18
[2019-01-17 19:54] VITALS: BP 119/59; PULSE 63; RESP 19
[2019-01-17] MEDS: CEFEPIME 1GM/50 ML (PMX) 50 ML IVPB SCH (20:37)
[2019-01-18 02:11] VITALS: BP 128/71; PULSE 62; RESP 20
[2019-01-18 07:24] VITALS: BP 107/56; PULSE 50; RESP 17
[2019-01-18] MEDS: CEFEPIME 1GM/50 ML (PMX) 50 ML IVPB SCH (08:15)
[2019-01-18] MEDS: HYDROCODONE/APAP (5/325) TAB PO PRN (11:40)
[2019-01-18 13:59] VITALS: BP 104/63; PULSE 61; RESP 18
[2019-01-18] MEDS: CIPROFLOXACIN 500 MG TAB PO SCH (17:31)
[2019-01-18 19:47] VITALS: BP 116/69; PULSE 59; RESP 20
[2019-01-19 02:17] VITALS: BP 119/63; PULSE 60; RESP 17
[2019-01-19] MEDS: CIPROFLOXACIN 500 MG TAB PO SCH (05:15)
[2019-01-19 07:26] VITALS: BP 114/64; PULSE 49; RESP 16
[2019-01-19 14:09] VITALS: BP 116/67; PULSE 66; RESP 15
== END 2019-01-19 14:50 | disposition home or self-care (01) | DRG 690 ==
LOC: E/R 21:07 → MS1 01-16 01:32
PROVIDERS: ADMIT Internal Medicine; ATTEND Internal Medicine
PROC: 0T2BX0Z Change Drainage Device in Bladder, External Approach (ICD-10-PCS; principal; 2019-01-19)
DX: N13.6 Pyonephrosis (principal); B96.1 Klebsiella pneumoniae [K. pneumoniae] as the cause of diseases classified elsewhere; B95.7 Other staphylococcus as the cause of diseases classified elsewhere
CPT/HCPCS: 36415; 80048; 80053; 81001; 83690; 85025; 87086; J0692; J0696; J2270; J7030

== ENCOUNTER 2019-04-04 14:12 | Emergency (ER) | payer OTHER ==
[~2019-04-04] VITALS: Ht 172.7 cm; Wt 94.1 kg
[~2019-04-04 14:12] MED LIST changes: +IBUP-1542 PO
[2019-04-04 14:20] VITALS: Ht 172.7 cm; Wt 94.1 kg
[2019-04-04] MEDS ORDERED: LIDOCAINE 2% JEL.PF.APP 5 ML UROJET SYRINGE MM ONE (17:30)
[2019-04-04] MEDS ORDERED: KETOROLAC 60 MG INJ IM STA (17:46)
[2019-04-04 19:14] VITALS: BP 130/74; PULSE 76; RESP 16
== END 2019-04-04 19:22 | disposition home or self-care (01) ==
LOC: E/R 14:12
DX: N39.0 Urinary tract infection, site not specified (principal); R40.2142 Coma scale, eyes open, spontaneous, at arrival to emergency department; R40.2252 Coma scale, best verbal response, oriented, at arrival to emergency department; R40.2362 Coma scale, best motor response, obeys commands, at arrival to emergency department
CPT/HCPCS: 87086; 96372; J1885; Z7502; Z7610